=== PATIENT | male | born 1945 | race Caucasian/White ===

== ENCOUNTER → 2016-11-12 | Outpatient (CLI) | payer MEDICARE, MEDICAID ==
--- NOTE | 2016-11-14 11:58 | REP ---
RADIONUCLIDE OCTREOTIDE SCAN WITH SPECT IMAGIN11/14/2016. Clinical history: Neuroendocrine, gastrinoma, liver metastatic disease, surveillance. Comparison: 06/01/2015, 04/12/2014. Technique: Following the intravenous administration of 5.85 mCi Indium-111 Octreoscan, whole body images performed at 4 hours, 24 hours and 48 hours post injection. SPECT images and axial coronal and sagittal planes 24 hours post injection are also reviewed. Uptake in the spleen and kidneys noted as a normal finding. There is abnormal increased uptake and scattered lesions in the liver from the known metastatic disease but the left lobe of the liver today showing fewer lesions compared to May 2015. Pattern of uptake in the mid abdomen is again seen and similar in distribution and uptake intensity from the metastatic lesions previously noted. No other significant or new findings. The SPECT images confirm these above findings. Impression: 1. Pattern of metastatic lesions in the liver and mid abdominal mesenteric lesions noted and not significantly changed or increased except for two lesions in the left lobe of the liver that are much less apparent than on the study of May 2015. Signed by Jame Higuera MD 11/14/2016 05:50 P
== END ==
LOC: M RAD 07:40
PROVIDERS: ATTEND Internal Medicine Hematology & Oncology
DX: C25.4 Malignant neoplasm of endocrine pancreas (principal); C7A.8 Other malignant neuroendocrine tumors; C7B.8 Other secondary neuroendocrine tumors
CPT/HCPCS: 78803; 78804; A9572

== ENCOUNTER → 2016-11-13 | Outpatient (CLI) | payer MEDICARE, MEDICAID ==
--- NOTE | 2016-11-13 13:14 | REP ---
MRI ABDOMEN WITHOUT AND WITH CONTRAST: 11/13/2016. Clinical history: Neuroendocrine carcinoma, metastatic to the liver. Comparison: MRI 10/15/2011, CT abdomen and pelvis 08/29/2015. Technique: Coronal true FISP localizer with axial T1, T2, in and out of phase, fat suppressed T2 axial and coronal images, gradient echo images and axial projection after infusion of a bolus of 18 ml of ProHance, dynamic axial gradient echo sequences performed along with coronal fat suppressed gradient-echo sequence. Examination shows there was some motion artifact from respiration limiting the T2 sequences. Study shows lobulated hepatic contours and multiple hepatic lesions showing low T1 signal, increased T2 signal and some contrast enhancement. Most of these are the same or smaller particularly in the left lobe. Some of the delayed ProHance images demonstrate rim enhancement and low signal centrally as on previous studies. I do see a couple of areas in the posterior right hepatic lobe near the interpolar region of the right kidney in subcapsular location that may be slightly larger, all others are the same or smaller. There appear to be increased size and number of posterior right hepatic lobe lesions seen on the delayed images of the liver in the right hepatic lobe posteriorly. Most of the others are the same or slightly larger. The adrenal glands show no mass nor significant abnormality on the in and out of phase images. In the tail of the pancreas, there is hyperintense T2 focus with an adjacent similar hyperintense T2 focus in the peripancreatic fat near the tail of the pancreas and both of these are unchanged from previous studies and may reflect a cystic neoplasm. I do not see changes in the stomach which appears collapsed. The kidneys show no enhancing mass. Spleen is not enlarged and shows no focal lesion. There is no generalized ascites. Impression: 1. Multiple lesions in the liver, many the same but some new ones posteriorly in the right hepatic lobe near the subcapsular region adjacent to the right kidney and overall slight increase in metastatic disease in the liver. 2. Cystic area tail of the pancreas and adjacent peripancreatic soft tissues to the tail are again seen and unchanged from previous CT and MRI 2011. 3. No other significant or new finding. Signed by Jame Higuera MD 11/13/2016 05:07 P
== END ==
LOC: M RAD 08:40
PROVIDERS: ATTEND Physician Assistant
DX: C7A.8 Other malignant neuroendocrine tumors (principal); C7B.8 Other secondary neuroendocrine tumors
CPT/HCPCS: 74183; A9576

== ENCOUNTER → 2017-04-11 | Outpatient (CLI) | payer MEDICARE, MEDICAID ==
[2017-04-11 08:19] LABS: ANION GAP 6 MEQ/L (8-16); BLOOD UREA NITROGEN 16 MG/DL (7-18); CARBON DIOXIDE LEVEL 29 MEQ/L (21-32); CHLORIDE LEVEL 110 MEQ/L (98-107); CREATININE FOR GFR 0.73 MG/DL (0.70-1.30); GLOMERULAR FILTRATION RATE > 60.0 (>49); GLUCOSE, FASTING 96 MG/DL (80-110); SODIUM LEVEL 145 MEQ/L (136-145)
== END ==
LOC: M LAB 07:19
PROVIDERS: ATTEND Physician Assistant
DX: C7A.00 Malignant carcinoid tumor of unspecified site (principal); D3A.8 Other benign neuroendocrine tumors
CPT/HCPCS: 36415; 74183; 80048; A9576

== ENCOUNTER → 2017-04-11 | Outpatient (CLI) | payer MEDICARE, MEDICAID ==
--- NOTE | 2017-04-11 10:56 | REP ---
MRI ABDOMEN WITH AND WITHOUT CONTRAST: TECHNIQUE: Multiple sequences obtained in the axial and coronal planes prior to and following the intravenous administration of 18 mL of gadolinium. Comparison is made with prior study of 11/13/2016. There is a liver lesion in the left lobe superiorly which measures approximately 2.6 cm in maximum diameter. This has mildly increased in size since the prior MRI exam. There are approximately six focal liver lesion identified in the right lobe, one of which is adjacent to the caudate lobe. All of these lesions have mildly increased in size since the prior MRI exam. The lesions are hypointense on T1 and hyperintense on T2 and demonstrate mild enhancement. The lesion near the caudate lobe measures approximately 3.1 cm in maximum diameter. The largest inferior lesion is posteriorly located and measures about 3.9 cm in maximum diameter. The spleen is normal in size. Adrenals are unremarkable with no nodule. The pancreas is unchanged in appearance. Prominent common bile duct is stable. The kidneys demonstrate no hydronephrosis or suspicious lesion. There is no adenopathy or free fluid identified. IMPRESSION: Multiple liver nodules have mildly increased in size since the prior MRI of 11/13/2016 as discussed in detail above. Signed by Moises Alvarenga MD 04/11/2017 11:57 A
== END ==
LOC: M RAD 07:35
PROVIDERS: ATTEND Internal Medicine Hematology & Oncology
DX: C7A.00 Malignant carcinoid tumor of unspecified site (principal)

== ENCOUNTER → 2017-08-22 | Outpatient (CLI) | payer MEDICARE, MEDICAID ==
[~2017-08-22] MED LIST: PROHANCE 279.3MG/ML 15ML VIAL (A9576) As Ordered; PROHANCE 279.3MG/ML 5ML VIAL (A9576) As Ordered
[2017-08-22 10:54] LABS: ALBUMIN 3.3 GM/DL (3.2-5.2); ALBUMIN/GLOBULIN RATIO 0.97 (1.00-1.93); ALKALINE PHOSPHATASE 38 U/L (45-117); ALT/SGPT 23 U/L (12-78); ANION GAP 6 MEQ/L (8-16); AST/SGOT 15 U/L (7-37); BILIRUBIN,TOTAL 0.5 MG/DL (0.2-1.0); BLOOD UREA NITROGEN 12 MG/DL (7-18); CALCIUM LEVEL 8.3 MG/DL (8.8-10.2); CARBON DIOXIDE LEVEL 31 MEQ/L (21-32); CHLORIDE LEVEL 103 MEQ/L (98-107); CREATININE FOR GFR 0.81 MG/DL (0.70-1.30); GLOMERULAR FILTRATION RATE > 60.0 (>42); GLUCOSE, FASTING 242 MG/DL (83-110); POTASSIUM SERUM 4.1 MEQ/L (3.5-5.1); SODIUM LEVEL 140 MEQ/L (136-145); TOTAL PROTEIN 6.7 GM/DL (6.4-8.2)
== END ==
LOC: M RAD 10:00
DX: C78.80 Secondary malignant neoplasm of unspecified digestive organ (principal)
CPT/HCPCS: A9576

== ENCOUNTER → 2017-09-15 | Outpatient (CLI) | payer MEDICARE, MEDICAID | LOC: M RAD 08:41 | DX: C7A.00 Malignant carcinoid tumor of unspecified site (principal) | CPT/HCPCS: 78804 ==

== ENCOUNTER → 2017-12-19 | Outpatient (CLI) | payer MEDICARE, MEDICAID ==
[2017-12-19 10:44] LABS: BASO % 0.2 % (0.0-1.0); EOS % 0.3 % (0.0-3.0); HEMATOCRIT 41.8 % (42.0-52.0); HEMOGLOBIN 14.6 g/dl (13.5-17.5); IMMATURE GRANULOCYTE % 0.5 % (0-3.0); LYMPH # 1.7 10^3/uL (1.5-4.5); LYMPH % 19.2 % (24.0-44.0); MEAN CORPUSCULAR HEMOGLOBIN 30.4 pg (27.0-33.0); MEAN CORPUSCULAR HGB CONC 34.9 g/dl (32.0-36.5); MEAN CORPUSCULAR VOLUME 86.9 fl (80.0-96.0); MONO # 0.7 10^3/uL (0.0-0.8); NEUTROPHILS # 6.2 10^3/uL (1.8-7.7); NEUTROPHILS % 71.8 % (36.0-66.0); PLATELET COUNT, AUTOMATED 233 10^3/uL (150-450); RED BLOOD COUNT 4.81 10^6/uL (4.30-6.10); RED CELL DISTRIBUTION WIDTH 13.2 % (11.5-14.5); WHITE BLOOD COUNT 8.6 10^3/uL (4.0-10.0)
[2017-12-19 11:14] LABS: ALBUMIN 3.7 GM/DL (3.2-5.2); ALBUMIN/GLOBULIN RATIO 1.16 (1.00-1.93); ALKALINE PHOSPHATASE 41 U/L (45-117); ALT/SGPT 21 U/L (12-78); ANION GAP 4 MEQ/L (8-16); AST/SGOT 21 U/L (7-37); BILIRUBIN,TOTAL 0.5 MG/DL (0.2-1.0); BLOOD UREA NITROGEN 18 MG/DL (7-18); CALCIUM LEVEL 9.1 MG/DL (8.8-10.2); CARBON DIOXIDE LEVEL 30 MEQ/L (21-32); CHLORIDE LEVEL 106 MEQ/L (98-107); CREATININE FOR GFR 0.82 MG/DL (0.70-1.30); GLOMERULAR FILTRATION RATE > 60.0 (>42); GLUCOSE, FASTING 146 MG/DL (70-100); POTASSIUM SERUM 4.2 MEQ/L (3.5-5.1); SODIUM LEVEL 140 MEQ/L (136-145); TOTAL PROTEIN 6.9 GM/DL (6.4-8.2)
[2017-12-24 00:07] LABS: CHROMOGRANIN A 5 nmol/L (0-5)
== END ==
LOC: M LAB 10:06
DX: C7A.8 Other malignant neuroendocrine tumors (principal); C7B.8 Other secondary neuroendocrine tumors

== ENCOUNTER → 2017-12-19 | Outpatient (CLI) | payer MEDICARE, MEDICAID | LOC: M RAD 10:26 | DX: C7A.8 Other malignant neuroendocrine tumors (principal); C7B.8 Other secondary neuroendocrine tumors | CPT/HCPCS: A9576 ==

== ENCOUNTER → 2017-12-29 | Outpatient (CLI) | payer MEDICARE, MEDICAID | LOC: M RAD 08:25 | DX: C7A.8 Other malignant neuroendocrine tumors (principal); C7B.8 Other secondary neuroendocrine tumors | CPT/HCPCS: 78804 ==

== ENCOUNTER → 2018-03-23 | Outpatient (CLI) | payer MEDICARE, MEDICAID ==
[2018-03-23 11:35] LABS: ALBUMIN 3.5 GM/DL (3.2-5.2); ALBUMIN/GLOBULIN RATIO 1.13 (1.00-1.93); ALKALINE PHOSPHATASE 35 U/L (45-117); ALT/SGPT 22 U/L (12-78); ANION GAP 5 MEQ/L (8-16); AST/SGOT 14 U/L (7-37); BILIRUBIN,TOTAL 0.5 MG/DL (0.2-1.0); BLOOD UREA NITROGEN 13 MG/DL (7-18); CALCIUM LEVEL 8.7 MG/DL (8.8-10.2); CARBON DIOXIDE LEVEL 29 MEQ/L (21-32); CHLORIDE LEVEL 107 MEQ/L (98-107); CREATININE FOR GFR 0.86 MG/DL (0.70-1.30); GLOMERULAR FILTRATION RATE > 60.0 (>42); GLUCOSE, FASTING 172 MG/DL (70-100); POTASSIUM SERUM 5.1 MEQ/L (3.5-5.1); SODIUM LEVEL 141 MEQ/L (136-145); TOTAL PROTEIN 6.6 GM/DL (6.4-8.2)
== END ==
LOC: M LAB 10:18
DX: C7B.8 Other secondary neuroendocrine tumors (principal)
CPT/HCPCS: 80053

== ENCOUNTER → 2018-04-22 | Outpatient (CLI) | payer MEDICARE, MEDICAID | LOC: M RAD 12:22 | DX: D73.89 Other diseases of spleen (principal); K76.9 Liver disease, unspecified | CPT/HCPCS: A9576 ==

== ENCOUNTER → 2018-04-27 | Outpatient (CLI) | payer MEDICARE, MEDICAID | LOC: M RAD 08:21 | DX: C7B.8 Other secondary neuroendocrine tumors (principal) | CPT/HCPCS: 78804 ==

== ENCOUNTER 2018-07-24 06:45 | Day surgery (SDC) | payer MEDICARE, MEDICAID ==
[~2018-07-24] VITALS: Ht 175.3 cm; Wt 90.7 kg
[~2018-07-24 06:45] MED LIST changes: +ADV250INH INH; +AMLO10TA4 PO; +ASPI1TAB PO; +CRES5TAB PO; +DEXI60CA2 PO; +FINA5TAB2 PO; +FLOM0.4C39 PO; +FLON1SPR; +INDA125TA PO; +INSUH10VL SC; +LANREOTIDE SC; +LORA-243 PO; +METF10004 PO; +OMEG10002 PO; -PROHANCE 279.3MG/ML 15ML VIAL (A9576) As Ordered; -PROHANCE 279.3MG/ML 5ML VIAL (A9576) As Ordered; +TRES1INJ2 SC; +VENTAER INH; +VITA100T20 PO; +VITA500T PO
[2018-07-24] MEDS ORDERED: SIMETHICONE 40MG/0.6ML DROPS 30ML As Ordered ONE (07:02)
[2018-07-24] MEDS ORDERED: LIDOCAINE 2% INJ 100 MG/5 ML SDV (FOR ANES.) As Ordered ONE (07:12)
[2018-07-24] MEDS ORDERED: PROPOFOL 200 MG/20 ML VIAL As Ordered ONE ×2 (07:12→07:54)
[2018-07-24] MEDS ORDERED: NS 1,000 ML IV ONE (07:15)
[2018-07-24] MEDS ORDERED: fentaNYL 100 MCG/2 ML INJECTION (J3010) As Ordered ONE (07:40)
--- NOTE | 2018-07-24 07:49 | ROOR ---
Patient Name: Carl Medina Procedure Date: 07/24/2018 7:38 AM Date of : 1945 Age: 73 Room: [facility] Gender: Male Note Status: Finalized Procedure: Upper GI endoscopy Indications: Heartburn Providers: Melvin GAYLE MD Referring MD: JEISON WALSH MD Requesting Provider: Medicines: Monitored Anesthesia Care Complications: No immediate complications. Procedure: Pre-Anesthesia Assessment: - The heart rate, respiratory rate, oxygen saturations, blood pressure, adequacy of pulmonary ventilation, and response to care were monitored throughout the procedure. The Endoscope was introduced through the mouth, and advanced to the second part of duodenum. The upper GI endoscopy was accomplished without difficulty. The patient tolerated the procedure well. Findings: The esophagus was normal. The stomach was normal. The examined duodenum was normal. Impression: - Normal esophagus. - Normal stomach. - Normal examined duodenum. - No specimens collected. Recommendation: - Continue present medications. Melvin Gayle MD Melvin GAYLE MD 07/24/2018 7:49:24 AM This report has been signed electronically. Number of Addenda: 0 Note Initiated On: 07/24/2018 7:38 AM Estimated Blood Loss: Estimated blood loss: none.
--- NOTE | 2018-07-24 08:04 | ROOR ---
Patient Name: Carl Medina Procedure Date: 07/24/2018 7:38 AM Date of : 1945 Age: 73 Room: [facility] Gender: Male Note Status: Finalized Procedure: Colonoscopy Indications: High risk colon cancer surveillance: Personal history of colonic polyps, Last colonoscopy: April 2015 Providers: Melvin GAYLE MD Referring MD: JEISON WALSH MD Requesting Provider: Medicines: Monitored Anesthesia Care Complications: No immediate complications. Procedure: Pre-Anesthesia Assessment: - The heart rate, respiratory rate, oxygen saturations, blood pressure, adequacy of pulmonary ventilation, and response to care were monitored throughout the procedure. The Colonoscope was introduced through the anus and advanced to the cecum, identified by appendiceal orifice and ileocecal valve. The colonoscopy was performed without difficulty. The patient tolerated the procedure well. The quality of the bowel preparation was good. Findings: The perianal and digital rectal examinations were normal. Three sessile polyps were found in the sigmoid colon and splenic flexure. The polyps were 3 to 5 mm in size. These polyps were removed with a cold snare. Resection and retrieval were complete. Mild to moderate sigmoid diverticulosis and small internal hemorrhoids. The exam was otherwise without abnormality on direct and retroflexion views. Impression: - Three 3 to 5 mm polyps in the sigmoid colon and at the splenic flexure, removed with a cold snare. Resected and retrieved. - Mild to moderate sigmoid diverticulosis and small internal hemorrhoids. - The examination was otherwise normal on direct and retroflexion views. Recommendation: - Await pathology results. - Telephone endoscopist for pathology results in 2 weeks. - Repeat colonoscopy in 3 - 5 years for surveillance based on pathology results. Melvin Gayle MD Melvin GAYLE MD 07/24/2018 8:04:21 AM This report has been signed electronically. Number of Addenda: 0 Note Initiated On: 07/24/2018 7:38 AM Estimated Blood Loss: Estimated blood loss: none.
[2018-07-24 08:25] VITALS: BP 142/78
== END 2018-07-24 08:39 | disposition home or self-care (01) ==
LOC: M OPP 06:45
PROVIDERS: ATTEND Internal Medicine Gastroenterology
DX: Z12.11 Encounter for screening for malignant neoplasm of colon (principal); Z86.010 Personal history of colon polyps; D12.5 Benign neoplasm of sigmoid colon; D12.3 Benign neoplasm of transverse colon; R12 Heartburn; K64.8 Other hemorrhoids; K57.30 Diverticulosis of large intestine without perforation or abscess without bleeding; K21.9 Gastro-esophageal reflux disease without esophagitis; I10 Essential (primary) hypertension; E10.9 Type 1 diabetes mellitus without complications; N40.0 Benign prostatic hyperplasia without lower urinary tract symptoms; E16.4 Increased secretion of gastrin; Z79.82 Long term (current) use of aspirin; Z79.4 Long term (current) use of insulin; Z79.899 Other long term (current) drug therapy; Z88.8 Allergy status to other drugs, medicaments and biological substances; Z80.0 Family history of malignant neoplasm of digestive organs; Z80.8 Family history of malignant neoplasm of other organs or systems; Z85.07 Personal history of malignant neoplasm of pancreas
CPT/HCPCS: 43235; 45385; 88305; J3010

== ENCOUNTER → 2018-07-28 | Outpatient (REF) | payer MEDICARE, MEDICAID ==
[2018-07-28 14:10] LABS: APPEARANCE, URINE CLEAR (CLEAR); BACTERIA, URINE AUTO NEGATIVE (NEGATIVE); BILIRUBIN, URINE AUTO NEGATIVE (NEGATIVE); BLOOD, URINE BLOOD NEGATIVE (NEGATIVE); COLOR, URINE STRAW (YELLOW); GLUCOSE, URINE (UA) AUTO NEGATIVE (NEGATIVE); KETONE, URINE AUTO NEGATIVE (NEGATIVE); LEUKOCYTE ESTERASE, URINE AUTO NEGATIVE (NEGATIVE); NITRITE, URINE AUTO NEGATIVE (NEGATIVE); PROTEIN, URINE AUTO NEGATIVE (NEGATIVE); RBC, URINE AUTO 0 /HPF (0-3); SPECIFIC GRAVITY URINE AUTO 1.003 (1.002-1.035); SQUAMOUS EPITHELIAL CELL UR AU 0 /HPF (0-6); UROBILINOGEN, URINE AUTO 0.2 mg/dL (0.0-2.0); WBC, URINE AUTO 0 /HPF (0-3)
== END ==
LOC: M LAB REF 13:04
PROVIDERS: ATTEND Nurse Practitioner Women's Health
DX: N40.0 Benign prostatic hyperplasia without lower urinary tract symptoms (principal)
CPT/HCPCS: 51798; 81001; 87086; G0463

== ENCOUNTER → 2018-10-22 | Outpatient (CLI) | payer MEDICARE, MEDICAID ==
[~2018-10-22] MED LIST changes: -AMLO10TA4 PO; +AMLO10TA5 PO; +PROHANCE 279.3MG/ML 15ML VIAL (A9576) As Ordered ONE; +PROHANCE 279.3MG/ML 5ML VIAL (A9576) As Ordered ONE
[2018-10-22 11:03] LABS: BASO % 0.3 % (0.0-1.0); EOS # 0.1 10^3/uL (0.0-0.50); EOS % 0.8 % (0.0-3.0); HEMATOCRIT 43.2 % (42.0-52.0); HEMOGLOBIN 14.9 g/dl (13.5-17.5); LYMPH # 1.8 10^3/uL (1.5-4.5); MEAN CORPUSCULAR HEMOGLOBIN 30.3 pg (27.0-33.0); MEAN CORPUSCULAR HGB CONC 34.5 g/dl (32.0-36.5); MEAN CORPUSCULAR VOLUME 87.8 fl (80.0-96.0); MONO # 0.7 10^3/uL (0.0-0.8); MONO % 7.9 % (0.0-5.0); NEUTROPHILS % 69.7 % (36.0-66.0); PLATELET COUNT, AUTOMATED 270 10^3/uL (150-450); RED BLOOD COUNT 4.92 10^6/uL (4.30-6.10); WHITE BLOOD COUNT 8.7 10^3/uL (4.0-10.0)
[2018-10-22 11:32] LABS: ALBUMIN 3.9 GM/DL (3.2-5.2); ALT/SGPT 15 U/L (12-78); BILIRUBIN,TOTAL 0.6 MG/DL (0.2-1.0); BLOOD UREA NITROGEN 12 MG/DL (7-18); CARBON DIOXIDE LEVEL 30 MEQ/L (21-32); CHLORIDE LEVEL 104 MEQ/L (98-107); CREATININE FOR GFR 0.82 MG/DL (0.70-1.30); GLOMERULAR FILTRATION RATE > 60.0 (>42); GLUCOSE, FASTING 68 MG/DL (70-100); POTASSIUM SERUM 4.2 MEQ/L (3.5-5.1); SODIUM LEVEL 141 MEQ/L (136-145)
--- NOTE | 2018-10-22 14:22 | REP ---
MRI ABDOMEN WITH AND WITHOUT CONTRAST: COMPARISON: 04/22/2018. Multiple sequences obtained in the axial and coronal planes prior to and following the intravenous administration of 18 mL ProHance. Multiple liver lesions are again seen. These are hypointense on T1 and hyperintense on T2 with a heterogeneous signal pattern on T2. Multiple enhancing nodules are seen in the arterial phase of post gadolinium enhancement. Multiple small nodules superiorly in the right and left lobes appear essentially unchanged. A heterogeneously enhancing nodule in the region of the caudate lobe has increased in size measuring about 2.4 cm in diameter. A mildly enhancing nodule in the posterior right lobe inferiorly is mildly increased in size now measuring 5 cm in maximum diameter. Several other nodules in this region of the right lobe only minimally enhance with contrast, but have increased in size. There is one nodule medially in the inferior right lobe which is stable. This measures about 1.7 cm. Another nodule in the left dome is unchanged, near the fissure for ligamentum teres. A heterogeneously enhancing nodule in the left lobe superiorly and posteriorly measures 2.6 cm and has mildly increased in size since the prior study. Three dominant nodules are seen in the spleen, the largest measures approximately 4.5 cm in diameter. These nodules appear slightly larger than on the prior study. Adrenals are unremarkable and unchanged. Pancreas demonstrates no mass. Mildly prominent common bile duct is unchanged. Kidneys demonstrate no mass. There is no hydronephrosis. No periaortic adenopathy is seen. There is no ascites. IMPRESSION: Multiple liver nodules identified. These demonstrate variable enhancement with some enhancing in the arterial phase and others not enhancing. Most have mildly increased in size since the prior study of 04/22/2018 although many are also stable as discussed in detail above. Three dominant nodules are seen in the spleen which have minimally increased in size. Please note that the two most anterior nodules in the spleen previously were thought to represent one larger nodule, but today they appear to represent two separate nodules. Electronically Signed by Moises Alvarenga MD 10/22/2018 05:15 P
[2018-10-27 00:07] LABS: CHROMOGRANIN A 8 nmol/L (0-5); GASTRIN 544 pg/mL (0-115)
== END ==
LOC: M LAB 10:20
PROVIDERS: ATTEND Internal Medicine Hematology & Oncology
DX: C7A.8 Other malignant neuroendocrine tumors (principal); K76.89 Other specified diseases of liver; D73.89 Other diseases of spleen
CPT/HCPCS: 74183; 80053; 82941; 85025; 86316; A9576

== ENCOUNTER → 2018-10-26 | Outpatient (CLI) | payer MEDICARE, MEDICAID ==
[~2018-10-26] MED LIST changes: -PROHANCE 279.3MG/ML 15ML VIAL (A9576) As Ordered ONE; -PROHANCE 279.3MG/ML 5ML VIAL (A9576) As Ordered ONE
--- NOTE | 2018-10-28 21:26 | REP ---
OCTREOSCAN FOR NEUROENDOCRINE TUMOR WITH SPECT IMAGIN10/26/2018. Clinical history: Gastrinoma for restaging. Comparison: 04/27/2018, 12/29/2017 Octreoscan, MRI 10/22/2018. Technique: The patient received 6.5 mCi Indium-111 Octreoscan with 4 hour, 24 hour and 48 hour whole body delayed images. Similarly, scanning over the chest and abdomen in multiple projections at those same time also performed. SPECT imaging with rotational display of the volume reconstructions and source images reviewed at the 48 hour scan. Findings: Once again, there are multiple foci of increased uptake throughout the liver in this patient with known metastatic disease. Uptake in the pancreatic bed just to the left of midline also noted and all of this unchanged in extent. Intensity of uptake in the liver appears slightly decreased. The background activity and uptake in the kidneys and other organs are appropriate and stable. Impression: 1. Pattern of increased uptake in the liver and periaortic/peripancreatic region to the left of midline, stable compared to multiple prior studies on standard and SPECT images. Intensity of uptake of liver lesions is slightly decreased for some of them. No new findings. Electronically Signed by Jame Higuera MD 10/28/2018 10:11 P
== END ==
LOC: M RAD 08:15
PROVIDERS: ATTEND Internal Medicine Hematology & Oncology
DX: C7A.8 Other malignant neuroendocrine tumors (principal); D37.9 Neoplasm of uncertain behavior of digestive organ, unspecified
CPT/HCPCS: 78803; 78804; A9572

== ENCOUNTER → 2019-04-26 | Outpatient (CLI) | payer MEDICARE, MEDICAID ==
[~2019-04-26] MED LIST changes: -ASPI1TAB PO; +ASPI81TA26 PO; -VITA100T20 PO; +VITA100T51 PO
--- NOTE | 2019-04-28 11:51 | REP ---
WHOLE BODY OCTREOTIDE SCAN TUMOR IMAGING WITH SPECT IMAGES: Following the intravenous administration of 6.6 millicuries technetium 111 octreotide, multiple images are obtained of the whole body in multiple projections, at 4 hours, 24 hours, and 48 hours postinjection. SPECT images are also performed in the axial, coronal, and sagittal planes. Comparison is made with prior study of 10/26/2018. Once again, there are multiple foci and increased uptake in the liver. These foci appears essentially unchanged in size and intensity given differences in technique. Central mesenteric uptake also appears stable. No new foci of abnormal uptake are seen. There is normal renal and bladder activity seen. IMPRESSION: Essentially stable exam compared to multiple prior studies, most recently 10/26/2018. Electronically Signed by Moises Alvarenga MD 04/29/2019 09:22 A
== END ==
LOC: M RAD 08:20
PROVIDERS: ATTEND Physician Assistant
DX: C7A.8 Other malignant neuroendocrine tumors (principal); C7B.8 Other secondary neuroendocrine tumors
CPT/HCPCS: 78803; 78804; 80053; 85025; 86316; A9572

== ENCOUNTER → 2019-04-26 | Outpatient (CLI) | payer MEDICARE, MEDICAID ==
[2019-04-26 09:37] LABS: BASO % 0.6 % (0.0-1.0); EOS # 0.1 10^3/uL (0.0-0.5); EOS % 1.8 % (0.0-3.0); HEMATOCRIT 40.7 % (42.0-52.0); HEMOGLOBIN 13.7 g/dl (13.5-17.5); LYMPH # 1.5 10^3/uL (1.5-5.0); LYMPH % 21.6 % (24.0-44.0); MEAN CORPUSCULAR HEMOGLOBIN 30.2 pg (27.0-33.0); MEAN CORPUSCULAR HGB CONC 33.7 g/dl (32.0-36.5); MEAN CORPUSCULAR VOLUME 89.8 fl (80.0-96.0); MONO # 0.7 10^3/uL (0.0-0.8); MONO % 10.3 % (0.0-5.0); NEUTROPHILS # 4.4 10^3/uL (1.5-8.5); NEUTROPHILS % 65.1 % (36.0-66.0); PLATELET COUNT, AUTOMATED 253 10^3/uL (150-450); RED BLOOD COUNT 4.53 10^6/uL (4.30-6.10); WHITE BLOOD COUNT 6.8 10^3/uL (4.0-10.0)
[2019-04-26 10:10] LABS: ALBUMIN 3.8 GM/DL (3.2-5.2); ALT/SGPT 19 U/L (12-78); BILIRUBIN,TOTAL 0.5 MG/DL (0.2-1.0); BLOOD UREA NITROGEN 25 MG/DL (7-18); CALCIUM LEVEL 9.4 MG/DL (8.8-10.2); CARBON DIOXIDE LEVEL 28 MEQ/L (21-32); CHLORIDE LEVEL 103 MEQ/L (98-107); CREATININE FOR GFR 1.07 MG/DL (0.70-1.30); GLOMERULAR FILTRATION RATE > 60.0 (>42); GLUCOSE, FASTING 116 MG/DL (70-100); POTASSIUM SERUM 4.1 MEQ/L (3.5-5.1); SODIUM LEVEL 143 MEQ/L (136-145); TOTAL PROTEIN 6.7 GM/DL (6.4-8.2)
== END ==
LOC: M LAB 08:26
PROVIDERS: ATTEND Internal Medicine Hematology & Oncology
DX: C7B.8 Other secondary neuroendocrine tumors (principal)

== ENCOUNTER → 2019-04-27 | Outpatient (CLI) | payer MEDICARE, MEDICAID ==
[~2019-04-27] MED LIST changes: +PROHANCE 279.3MG/ML 15ML VIAL (A9576) As Ordered ONE; +PROHANCE 279.3MG/ML 5ML VIAL (A9576) As Ordered ONE
--- NOTE | 2019-04-27 10:31 | REP ---
MRI ABDOMEN WITH AND WITHOUT CONTRAST: TECHNIQUE: Multiple sequences obtained in the axial and coronal planes prior to and following the intravenous administration of 18 mL ProHance. Comparison made with prior study of 10/22/2018. Multiple liver lesions are again seen, demonstrating hypointensity on T1-weighted images and mild heterogeneous hyperintensity on T2. Multiple small enhancing nodules on the arterial phase postcontrast images are seen in the right and left lobes, measuring up to about 11 mm in maximum diameter. Most of these appear stable while a few in the superior aspect of the anterior segment of the right lobe appear to have slightly decreased in size. There is a lesion in the medial segment of the left lobe, which has increased in size but demonstrates an increased cystic component, approximately 3.6 cm in diameter. Another lesion at about the same level in the posterior aspect of the lateral segment of the left lobe has also increased in size with increased cystic component, maximum diameter is approximately 4 cm. At that same level in the more anterior aspect of the lateral segment of the left lobe, an enhancing lesion has slightly increased in size measuring 1 cm in diameter. An area of ill-defined enhancement at the more inferior aspect of the lateral segment of the left lobe appears to have mildly increased in size. There is increased size of a nodule laterally in the posterior segment of the right lobe more inferiorly, approximately 1 cm in diameter. There are adjacent larger confluent enhancing nodules, which have increased in size since the prior exam. Common bile duct is again noted to be dilated with a maximum diameter of 16 mm. Prior maximum diameter was 15 mm. There are at least three small filling defects in the distal end of the common bile duct now seen, compatible with small stones and choledocholithiasis. There is mild intrahepatic biliary dilatation. Spleen demonstrates three nodules. There is a larger central nodule, which has remained essentially stable. An adjacent smaller anterior nodule and posterior nodule have slightly increased in size, the anterior nodule about 2.5 cm in maximum diameter and the posterior nodule approximately 3.9 cm. There is stable diffuse mild thickening of the left adrenal gland. The right adrenal gland appears normal. Pancreas is unchanged in appearance. No mass is seen in either kidney, and there is no hydronephrosis. Soft tissue nodules are again seen in the peripancreatic region. An oval nodule along the anterior aspect of the inferior vena cava has mildly increased in size measuring 3.8 x 2.1 cm, previously, 3.2 x 1.7 cm. No free fluid is seen in the abdomen. IMPRESSION: Multiple liver nodules again seen. A few of the smaller nodules enhancing the arterial phase of the study in the anterior segment of the right lobe superiorly have mildly decreased in size. Other similar-appearing nodules in the right and left lobes have either remained stable or have mildly increased in size. Two larger nodules in the left lobe superiorly, one in the medial segment and one in the lateral segment, have increased in size with increased cystic component. The lesion in the medial segment of the left lobe especially demonstrates cystic change with some minimal rim enhancement. The other lesion in the lateral segment of the left lobe posteriorly demonstrates a greater degree of enhancement. Other previously identified lesions in the region of the caudate lobe and inferior right lobe have increased in size. Three splenic lesions are again seen, one larger lesion centrally is stable while the two other smaller lesions have slightly increased in size. Peripancreatic soft tissue nodules for the most part are stable, except for a mild increase in size of an oval nodule along the anterior aspect of the inferior vena cava. Biliary dilatation is stable, but there are at least three new subcentimeter filling defects in the distal common bile duct compatible with choledocholithiasis. Electronically Signed by Moises Alvarenga MD 04/28/2019 10:49 A
== END ==
LOC: M RAD 06:36
PROVIDERS: ATTEND Physician Assistant
DX: C7A.8 Other malignant neuroendocrine tumors (principal)
CPT/HCPCS: 74183; A9576

== ENCOUNTER → 2019-11-08 | Outpatient (CLI) | payer MEDICARE, MEDICAID ==
[~2019-11-08] MED LIST changes: -PROHANCE 279.3MG/ML 15ML VIAL (A9576) As Ordered ONE; -PROHANCE 279.3MG/ML 5ML VIAL (A9576) As Ordered ONE
[2019-11-08 08:06] LABS: BLOOD UREA NITROGEN 16 MG/DL (7-18); CARBON DIOXIDE LEVEL 32 MEQ/L (21-32); CHLORIDE LEVEL 106 MEQ/L (98-107); GLOMERULAR FILTRATION RATE > 60.0 (>42); GLUCOSE, FASTING 189 MG/DL (70-100); POTASSIUM SERUM 4.3 MEQ/L (3.5-5.1); SODIUM LEVEL 141 MEQ/L (136-145)
--- NOTE | 2019-11-10 10:47 | REP ---
OCTREOSCAN NUCLEAR SCINTIGRAPHY WITH SPECT IMAGING: HISTORY: Metastatic neural endocrine malignancy. The most recent comparison Octreoscan is from April 27, 2019. Comparison is made with MRI study of the abdomen and liver from April 27, 2019 as well. TECHNIQUE: 6.6 mCi of Indium-111 Octreoscan is administered. Whole body images were obtained 4 hours, 24 hours, and 48 hours post injection anterior and posterior projection. In addition, planar images are obtained for hours, 24 hours, and 48 hours. A SPECT acquisition is acquired and tomographic images are rendered. SCINTIGRAPHIC FINDINGS: There are multifocal metastatic areas of increased uptake throughout the left and right lobes of the liver. Central upper abdominal shasha uptake is also present. These areas of increased uptake appear unchanged in size and number when comparison is made with the prior study from April 28, 2019. No new focus of increased uptake is seen within the chest, abdomen, or pelvis when compared with the most recent prior study of April 28, 2019. Imaging findings are essentially stable when compared with a more remote prior study from December 31, 2017 as well. SPECT imaging is unchanged as well. IMPRESSION: There is metastatic activity again seen in multiple foci in the liver and in multiple shasha foci in the upper abdomen unchanged from comparison Octreoscan study. Electronically Signed by Nakul Gomez MD 11/10/2019 11:29 A
== END ==
LOC: M RAD 07:15
PROVIDERS: ATTEND Internal Medicine Hematology & Oncology
DX: C80.1 Malignant (primary) neoplasm, unspecified (principal)
CPT/HCPCS: 36415; 78803; 78804; 80048; A9572

== ENCOUNTER → 2019-11-16 | Outpatient (CLI) | payer MEDICARE, MEDICAID ==
[~2019-11-16] MED LIST changes: +PROHANCE 279.3MG/ML 15ML VIAL (A9576) As Ordered ONE; +PROHANCE 279.3MG/ML 5ML VIAL (A9576) As Ordered ONE
--- NOTE | 2019-11-16 16:00 | REP ---
MRI ABDOMEN WITH AND WITHOUT CONTRAST: Multiple sequences obtained in the axial and coronal planes prior to and following the intravenous administration of 18 mL ProHance. Comparison made with prior study of 04/27/2019. On both pre and postcontrast sequences there is an increased number of nodules seen throughout both lobes of the liver. Multiple innumerable nodules are present throughout both lobes as seen on arterial phase post contrast images. Multiple new small nodules are seen. Previously noted nodules in both lobes have increased in size. Largest in the left lobe is posteriorly located and measures about 5.1 cm in diameter. The largest in the right lobe are inferiorly located and are coalescing together inferiorly. Previously noted splenic nodules have all increased in size. The previously noted mesenteric nodules have also increased in size. The largest is located anterior to the inferior vena cava at the level of the mid to upper right kidney. It measures 4.5 x 2.3 cm. There are a few other smaller adjacent mesenteric lymph nodes which have mildly increased in size. One of the left mesenteric lymph nodes adjacent to the superior mesenteric artery has remained stable. Adrenal glands and pancreas demonstrate no mass. The kidneys demonstrate no mass or hydronephrosis. There is dilatation of the common bile duct up to 1.9 cm. There are again three stones in the distal common bile duct which measure 1.3 cm, 1.4 cm and 8.0 mm in maximum diameter. The pancreas duct is not dilated. IMPRESSION: Multiple innumerable nodules now seen throughout the liver, with multiple new small nodules now seen throughout the right and left lobes. Previously noted nodules in the right and left lobes have increased in size. The previously noted splenic nodules have increased in size. Mesenteric nodules have also increased in size, except for one stable left mesenteric nodule near the superior mesenteric artery. Once again there is evidence of choledocholithiasis with three stones seen in the common bile duct as discussed above. Common bile duct is dilated up to 1.9 cm. Electronically Signed by Moises Alvarenga MD 11/16/2019 06:22 P
--- NOTE | 2019-11-16 16:25 | REP ---
MRI PELVIC WITH AND WITHOUT CONTRAST: TECHNIQUE: Multiple sequences obtained in the axial, coronal and sagittal planes prior to and following the intravenous administration of 18 mL ProHance. No pelvic mass is seen. There is no free fluid. There is no adenopathy. The urinary bladder is not well distended. No bone lesion is seen of the pelvic osseous structures. No abnormal enhancement is seen. IMPRESSION: Negative MRI pelvis with and without contrast. Electronically Signed by Moisse Alvarenga MD 11/16/2019 06:22 P
== END ==
LOC: M RAD 12:19
PROVIDERS: ATTEND Internal Medicine Hematology & Oncology
DX: C80.1 Malignant (primary) neoplasm, unspecified (principal)
CPT/HCPCS: 72197; 74183; A9576

== ENCOUNTER → 2020-02-01 | Outpatient (CLI) | payer MEDICARE, MEDICAID ==
[~2020-02-01] MED LIST changes: -PROHANCE 279.3MG/ML 15ML VIAL (A9576) As Ordered ONE; -PROHANCE 279.3MG/ML 5ML VIAL (A9576) As Ordered ONE; +VITA-243 PO; -VITA500T PO
[2020-02-01 16:17] LABS: BASO % 0.3 % (0.0-1.0); EOS # 0.1 10^3/uL (0.0-0.5); EOS % 0.8 % (0.0-3.0); HEMOGLOBIN 12.1 g/dl (13.5-17.5); LYMPH # 1.9 10^3/uL (1.5-5.0); LYMPH % 24.3 % (24.0-44.0); MEAN CORPUSCULAR HEMOGLOBIN 29.2 pg (27.0-33.0); MEAN CORPUSCULAR HGB CONC 32.7 g/dl (32.0-36.5); MEAN CORPUSCULAR VOLUME 89.2 fl (80.0-96.0); MONO # 0.5 10^3/uL (0.0-0.8); MONO % 6.8 % (0.0-5.0); NEUTROPHILS # 5.2 10^3/uL (1.5-8.5); NEUTROPHILS % 67.4 % (36.0-66.0); PLATELET COUNT, AUTOMATED 344 10^3/uL (150-450); RED BLOOD COUNT 4.15 10^6/uL (4.30-6.10); WHITE BLOOD COUNT 7.6 10^3/uL (4.0-10.0)
[2020-02-01 16:49] LABS: ALBUMIN 3.2 GM/DL (3.2-5.2); ALT/SGPT 22 U/L (12-78); BILIRUBIN,TOTAL 0.2 MG/DL (0.2-1.0); BLOOD UREA NITROGEN 29 MG/DL (7-18); CALCIUM LEVEL 8.9 MG/DL (8.8-10.2); CARBON DIOXIDE LEVEL 28 MEQ/L (21-32); CHLORIDE LEVEL 106 MEQ/L (98-107); CREATININE FOR GFR 1.21 MG/DL (0.70-1.30); GLOMERULAR FILTRATION RATE > 60.0 (>42); GLUCOSE, FASTING 151 MG/DL (70-100); POTASSIUM SERUM 4.7 MEQ/L (3.5-5.1); SODIUM LEVEL 139 MEQ/L (136-145)
== END ==
LOC: M LAB 15:36
PROVIDERS: ATTEND Physician Assistant
DX: C7B.8 Other secondary neuroendocrine tumors (principal)

== ENCOUNTER → 2020-06-05 | Outpatient (REF) | payer MEDICARE, MEDICAID ==
[~2020-06-05] MED LIST changes: -AMLO10TA5 PO; +AMLO1TAB25 PO
== END ==
LOC: M SMT 13:45
PROVIDERS: ATTEND Urology
DX: N32.89 Other specified disorders of bladder (principal)

== ENCOUNTER → 2020-10-26 | Outpatient (CLI) | payer MEDICARE, MEDICAID ==
[~2020-10-26] MED LIST changes: +PROHANCE 279.3MG/ML 15ML VIAL As Ordered ONE; +PROHANCE 279.3MG/ML 5ML VIAL As Ordered ONE
--- NOTE | 2020-10-26 11:39 | REP ---
INDICATION: NEURO another nodule anterior to the superior mesenteric artery has increased in size. The nodule just inferior to that level, just to the left of midline has not changed. Another adjacent nodule has not changed. CA OF LIVER. COMPARISON: 11/16/2019. TECHNIQUE: Multiple sequences obtained in the axial coronal planes prior to and following the intravenous administration of 15 mL ProHance. FINDINGS: Multiple nodules are again seen throughout both lobes of the liver, with new nodules present as well as increased size of the previously identified nodules. There is diffuse replacement of the spleen by multiple nodules which have increased in size. No adrenal mass is seen. No pancreatic mass is seen. No renal mass is seen. Previously noted mass anterior to the inferior vena cava has increased in size, 4.9 x 3.9 cm, previously 4.5 x 2.3 cm. Another mass anterior to the superior mesenteric artery has mildly increased in size. There are 2 nodules to the left of midline more inferiorly which are stable. No ascites is seen. Previously noted stones in the common bile duct are no longer visualized. The maximum diameter of the common bile duct is 1.5 cm, mildly decreased in diameter compared to the prior study. IMPRESSION: Multiple nodules throughout the liver and spleen have increased in size and there are several new liver nodules present. A mass anterior to the inferior vena cava and another anterior to the superior mesenteric artery have increased in size. Two other nodules more inferiorly on the left are unchanged. <Electronically signed by Moises Alvarenga > 10/26/20 [id number]
== END ==
LOC: M RAD 08:36
PROVIDERS: ATTEND Internal Medicine Hematology & Oncology
DX: C7A.8 Other malignant neuroendocrine tumors (principal); C7B.8 Other secondary neuroendocrine tumors
CPT/HCPCS: 74183; A9576

== ENCOUNTER → 2021-04-19 | Outpatient (CLI) | payer MEDICARE, MEDICAID ==
[~2021-04-19] MED LIST changes: -PROHANCE 279.3MG/ML 5ML VIAL As Ordered ONE
--- NOTE | 2021-04-19 15:47 | REP ---
INDICATION: RESTAGE NEURO ENDOCRINE CA. COMPARISON: 10/26/2020, 07/07/2020, as well as other prior exams. TECHNIQUE: Multiple sequences obtained in the axial coronal planes prior to and following the intravenous administration of 15 mL ProHance. FINDINGS: The liver is enlarged measuring approximately 19.4 cm in length. Multiple heterogeneous, enhancing nodules are again seen throughout the liver. Since the prior study of 07/07/2020, the dominant nodules have increased in diameter less than 1 cm. Multiple other smaller nodules also appear to have increased in diameter less than 1 cm. There do appear to be few new small nodules as well. The largest nodule is in the left lobe, measuring about 7.4 x 6.6 cm. There is an adjacent nodule just lateral to that 4.6 cm. More inferiorly in the right lobe a peripheral nodule measures 4.4 cm in maximum diameter. Large confluent nodules are again seen more inferiorly in the right lobe, the largest measures 5.1 x 5.9 cm. Multiple nodules are seen throughout the spleen which have not significantly changed. The adrenals, pancreas and kidneys again appear unremarkable. A nodule anterior to the inferior vena cava may be a few mm larger than on the 07/07/2020 exam. Other left para-aortic nodules appear unchanged. No free fluid is seen. The common bile duct appears unchanged. IMPRESSION: Multiple diffuse liver nodules, these demonstrate minimal, gradual, subcentimeter increase in size since the 07/07/2020 exam. Multiple nodules throughout the spleen have not significantly changed. A nodule anterior to the inferior vena cava may be a few mm larger than on the 07/07/2020 exam. Other soft tissue nodules adjacent to the abdominal aorta and superior mesenteric artery are essentially stable. <Electronically signed by Moises Alvarenga > 04/19/21 [id number]
== END ==
LOC: M RAD 12:33
PROVIDERS: ATTEND Internal Medicine Hematology & Oncology
DX: C7B.02 Secondary carcinoid tumors of liver (principal)
CPT/HCPCS: 74183; A9576

== ENCOUNTER → 2021-07-24 | Outpatient (CLI) | payer MEDICARE, MEDICAID ==
--- NOTE | 2021-07-24 14:10 | REP ---
INDICATION: OTHER MALIGNANT NEUROENDOCRINE TUMORS. COMPARISON: 04/19/2021. TECHNIQUE: Multiple sequences obtained in the axial coronal planes prior to and following the intravenous administration of 14 mL ProHance. FINDINGS: The liver is again noted to be enlarged with a length of approximately 19.4 cm. Multiple heterogeneous enhancing nodules are again seen throughout the liver. [employer] nodules are measured throughout the liver and there is no significant change compared to the prior study. No significant new nodules are seen in the liver. There are multiple nodules also seen in the spleen. These also are stable when compared to the prior study. The adrenals, pancreas and kidneys are unremarkable and unchanged. Multiple periaortic nodules are unchanged. There is no free fluid. Prominent common bile duct is unchanged. IMPRESSION: Compared to the prior exam there is no significant change in the multiple hepatic, splenic and periaortic nodules. <Electronically signed by Moises Alvarenga > 07/24/21 [id number]
== END ==
LOC: M RAD 11:34
PROVIDERS: ATTEND Internal Medicine Hematology & Oncology
DX: C7A.8 Other malignant neuroendocrine tumors (principal)
CPT/HCPCS: 74183; A9576

== ENCOUNTER → 2021-10-25 | Outpatient (CLI) | payer MEDICARE, MEDICAID ==
[~2021-10-25] MED LIST changes: -PROHANCE 279.3MG/ML 15ML VIAL As Ordered ONE
[2021-10-25 10:43] LABS: CREATININE FOR GFR 0.97 MG/DL (0.70-1.30); GLOMERULAR FILTRATION RATE > 60.0 (>42)
== END ==
LOC: M LAB 09:13
PROVIDERS: ATTEND Internal Medicine Hematology & Oncology
DX: C7B.8 Other secondary neuroendocrine tumors (principal)

== ENCOUNTER → 2021-10-25 | Outpatient (CLI) | payer MEDICARE, MEDICAID ==
[~2021-10-25] MED LIST changes: +PROHANCE 279.3MG/ML 15ML VIAL As Ordered ONE
== END ==
LOC: M RAD 08:18
PROVIDERS: ATTEND Internal Medicine Hematology & Oncology
DX: C7B.8 Other secondary neuroendocrine tumors (principal); C7A.8 Other malignant neuroendocrine tumors
CPT/HCPCS: 36415; 74183; 82565; A9576

== ENCOUNTER → 2021-11-07 | Outpatient (CLI) | payer MEDICARE, MEDICAID ==
[~2021-11-07] MED LIST changes: +ALFU10TA3 PO; +LOSA100T45 PO; +MYRB25TA PO; -PROHANCE 279.3MG/ML 15ML VIAL As Ordered ONE
== END ==
LOC: M LABSMTC 11:21
PROVIDERS: ATTEND Anesthesiology
DX: Z01.818 Encounter for other preprocedural examination (principal); Z11.52 Encounter for screening for COVID-19

== ENCOUNTER 2021-11-09 10:14 | Day surgery (SDC) | payer MEDICARE, MEDICAID ==
[~2021-11-09] VITALS: Ht 175.3 cm; Wt 75.3 kg
[~2021-11-09 10:14] MED LIST changes: +LIDOCAINE 2% 100MG/5ML SDV (FOR ANES.) As Ordered ONE; +NS 1,000 ML IV ONE; +propofoL 200 MG/20 ML VIAL As Ordered ONE
[2021-11-09] MEDS ORDERED: HumaLOG INSULIN (NovoLOG) PER UNIT SC ONE (11:55)
[2021-11-09 14:20] VITALS: BP 120/62
== END 2021-11-09 14:22 | disposition home or self-care (01) ==
LOC: M OPP 10:14
PROVIDERS: ATTEND Internal Medicine Gastroenterology
DX: Z12.11 Encounter for screening for malignant neoplasm of colon (principal); Z86.010 Personal history of colon polyps; Z80.0 Family history of malignant neoplasm of digestive organs; D12.5 Benign neoplasm of sigmoid colon; K57.30 Diverticulosis of large intestine without perforation or abscess without bleeding; Z79.4 Long term (current) use of insulin; Z79.82 Long term (current) use of aspirin; Z79.899 Other long term (current) drug therapy
CPT/HCPCS: 45385; 88305; J1815

== ENCOUNTER → 2022-04-25 | Outpatient (CLI) | payer MEDICARE, MEDICAID ==
[~2022-04-25] MED LIST changes: +INDA1.253 PO; -INDA125TA PO; -LIDOCAINE 2% 100MG/5ML SDV (FOR ANES.) As Ordered ONE; -NS 1,000 ML IV ONE; +PROHANCE 279.3MG/ML 15ML VIAL As Ordered ONE; -propofoL 200 MG/20 ML VIAL As Ordered ONE
== END ==
LOC: M RAD 10:39
PROVIDERS: ATTEND Internal Medicine Hematology & Oncology
DX: C7B.8 Other secondary neuroendocrine tumors (principal)
CPT/HCPCS: 74183; A9576

== ENCOUNTER 2022-11-29 08:26 | Day surgery (SDC) | payer MEDICARE, MEDICAID ==
[~2022-11-29] VITALS: Ht 175.3 cm; Wt 63.0 kg
[~2022-11-29 08:26] MED LIST changes: +AFIN5TAB PO; +AMLO10TA PO; +B-12100010 PO; +BISO5TAB14 PO; +DIFL200T PO; +DOCU100C16 PO; +EQL50TAB2 PO; +LANR60SY SC; +MAGN400T35 PO; +MYRB50TA PO; -PROHANCE 279.3MG/ML 15ML VIAL As Ordered ONE; +ROSU10TA6 PO; +TRAM50TA2 PO; +[UNRECOGNIZED DRUG - OTHER]
[2022-11-29] MEDS ORDERED: LR 1,000 ML IV SCH ×2 (08:40→12:10)
[2022-11-29] MEDS ORDERED: ceFAZolin SOD 2 GM in IV 1 EA IV ONE (09:20)
[2022-11-29] MEDS ORDERED: INSULIN LISPRO (NovoLOG) PER UNIT SC PRN (09:50)
[2022-11-29] MEDS ORDERED: LIDOCAINE 2% 100MG/5ML SDV (FOR ANES.) As Ordered ONE (10:12)
[2022-11-29] MEDS ORDERED: propofoL 200 MG/20 ML VIAL As Ordered ONE (10:12)
[2022-11-29] MEDS ORDERED: MIDAZOLAM INJ 2MG/2ML VIAL As Ordered ONE (10:35)
[2022-11-29] MEDS ORDERED: fentaNYL 100 MCG/2 ML INJECTION As Ordered ONE (10:36)
[2022-11-29] MEDS ORDERED: ONDANSETRON 4MG 2ML VIAL As Ordered ONE (11:09)
[2022-11-29] MEDS ORDERED: ePHEDrine SULFATE 25 MG/5 ML(5MG/ML) SYRINGE As Ordered ONE (11:19)
[2022-11-29] MEDS ORDERED: ACETAMINOPHEN 1000MG 100ML IV BAG As Ordered ONE (11:26)
[2022-11-29] MEDS ORDERED: PHENYLephrine 500MCG 5ML (100MCG/ML) SYRINGE As Ordered ONE (11:26)
[2022-11-29] MEDS ORDERED: BACITRACIN OINTMENT 30GM TUBE As Ordered ONE (12:07)
[2022-11-29] MEDS ORDERED: fentaNYL 100 MCG/2 ML INJECTION IV PRN (12:10)
[2022-11-29] MEDS ORDERED: oxyCODONE 5MG TAB PO PRN (12:10)
[2022-11-29] MEDS ORDERED: ONDANSETRON 4MG 2ML VIAL IV PRN (12:10)
[2022-11-29] MEDS ORDERED: HYDROMORPHONE HCL 0.5 MG/ 0.5 ML SYRINGE IV PRN (12:10)
[2022-11-29] MEDS ORDERED: PERCOCET 5MG/325MG TAB PO PRN (12:40)
[2022-11-29] MEDS ORDERED: PERCOCET PO (12:58)
[2022-11-29 13:07] VITALS: BP 118/72
== END 2022-11-29 13:29 | disposition home or self-care (01) ==
LOC: M SDC 08:26
PROVIDERS: ATTEND Urology
DX: N47.1 Phimosis (principal); I10 Essential (primary) hypertension; E78.00 Pure hypercholesterolemia, unspecified; E10.9 Type 1 diabetes mellitus without complications; E16.4 Increased secretion of gastrin; C25.4 Malignant neoplasm of endocrine pancreas; C78.7 Secondary malignant neoplasm of liver and intrahepatic bile duct; K21.9 Gastro-esophageal reflux disease without esophagitis; J45.909 Unspecified asthma, uncomplicated; R35.0 Frequency of micturition; N40.0 Benign prostatic hyperplasia without lower urinary tract symptoms; Z92.21 Personal history of antineoplastic chemotherapy; Z79.899 Other long term (current) drug therapy; Z79.51 Long term (current) use of inhaled steroids; Z79.82 Long term (current) use of aspirin; Z79.4 Long term (current) use of insulin
CPT/HCPCS: 54161; 88304; J0131; J0690; J1100; J1815; J2250; J2370; J2405; J3010

== ENCOUNTER → 2023-06-02 | Outpatient (CLI) | payer MEDICARE, MEDICAID ==
[~2023-06-02] MED LIST changes: -LOSA100T45 PO; +LOSA100T46 PO; +PERCOCET PO
[2023-06-02 13:36] LABS: BASO % 0.5 % (0.0-1.0); EOS # 0.1 10^3/uL (0.0-0.5); EOS % 1.1 % (0.0-3.0); HEMATOCRIT 37.8 % (42.0-52.0); HEMOGLOBIN 11.8 g/dl (13.5-17.5); LYMPH # 3.2 10^3/uL (1.5-5.0); LYMPH % 41.9 % (24.0-44.0); MEAN CORPUSCULAR HEMOGLOBIN 25.7 pg (27.0-33.0); MEAN CORPUSCULAR HGB CONC 31.2 g/dl (32.0-36.5); MEAN CORPUSCULAR VOLUME 82.2 fl (80.0-96.0); MONO # 0.5 10^3/uL (0.0-0.8); MONO % 7.1 % (2.0-8.0); NEUTROPHILS # 3.7 10^3/uL (1.5-8.5); NEUTROPHILS % 49.1 % (36.0-66.0); PLATELET COUNT, AUTOMATED 311 10^3/uL (150-450); WHITE BLOOD COUNT 7.6 10^3/uL (4.0-10.0)
[2023-06-02 13:44] LABS: LDH LACTATE DEHYDROGENASE 253 U/L (120-246)
[2023-06-02 13:45] LABS: ALKALINE PHOSPHATASE 73 U/L (46-116); ALT/SGPT 18 U/L (7.0-40); AST/SGOT 28 U/L (<34); BILIRUBIN,TOTAL 0.2 MG/DL (0.3-1.2); BLOOD UREA NITROGEN 36 MG/DL (9-23); CALCIUM LEVEL 8.7 MG/DL (8.3-10.6); CARBON DIOXIDE LEVEL 29 MMOL/L (20-31); CHLORIDE LEVEL 105 MMOL/L (98-107); GLOMERULAR FILTRATION RATE > 60.0 (>42); GLUCOSE, FASTING 262 MG/DL (74-106); POTASSIUM SERUM 5.3 MMOL/L (3.5-5.1); SODIUM LEVEL 138 MMOL/L (136-145); TOTAL PROTEIN 7.7 G/DL (5.7-8.2)
== END ==
LOC: M LAB 12:27
PROVIDERS: ATTEND Internal Medicine Hematology & Oncology
DX: C7B.8 Other secondary neuroendocrine tumors (principal)

== ENCOUNTER → 2023-06-02 | Outpatient (CLI) | payer MEDICARE, MEDICAID ==
[~2023-06-02] MED LIST changes: +ISOVUE-370 76% 100ML VIAL As Ordered ONE
== END ==
LOC: M RAD 12:18
PROVIDERS: ATTEND Nurse Practitioner Family
DX: C7B.8 Other secondary neuroendocrine tumors (principal)
CPT/HCPCS: 71260; Q9967

== ENCOUNTER 2025-05-26 07:17 | Day surgery (SDC) | payer MEDICARE, MEDICAID ==
[~2025-05-26] VITALS: Ht 175.3 cm; Wt 71.9 kg
[~2025-05-26 07:17] MED LIST changes: -ADV250INH INH; +ADVA1AER9 INH; +ALFU10TA23 PO; -ALFU10TA3 PO; +AMLO-751 PO; -AMLO10TA PO; +BEVE1AER INH; -EQL50TAB2 PO; +FERR324T2 PO; -FLOM0.4C39 PO; +IBUP200C25 PO; +ICOS1CAP PO; -ISOVUE-370 76% 100ML VIAL As Ordered ONE; +LEVO25TA5 PO; +PHENYLEPHRINE 10% OPHTH SOL 5ML OS PRN; -ROSU10TA6 PO; +ROSU10TA61 PO; +TAMS-18 PO; +VITA1TAB82 PO
[2025-05-26] MEDS: PHENYLEPHRINE 2.5% OPHTH SOL 2ML OS SCH (08:19)
[2025-05-26] MEDS: CYCLOPENTOLATE 1% OPHTH SOLN 2 ML BTL OS SCH (08:19)
[2025-05-26] MEDS: TROPICAMIDE 1% OPHTH SOLN 15ML OS SCH (08:19)
[2025-05-26] MEDS: OFLOXACIN 0.3 % (OCUFLOX) OPTH SOL 5ML OS ONE (08:19)
[2025-05-26] MEDS: LIDOCAINE 3.5% 1 ML OPHTH TOPICAL GEL OU ONE (08:19)
[2025-05-26] MEDS ORDERED: GLUCOSE 4 GM CHEW PO PRN (08:20)
[2025-05-26] MEDS ORDERED: GLUCAGON INJ 1 MG VIAL SC PRN (08:20)
[2025-05-26] MEDS ORDERED: DEXTROSE 50% 50 ML SYRINGE IV PRN (08:20)
[2025-05-26 08:21] VITALS: BP 138/61; TEMP 97.5; O2SAT 96
[2025-05-26] MEDS: INSULIN LISPRO (NovoLOG) PER UNIT SC PRN (08:27)
[2025-05-26] MEDS: LIDOCAINE 1% SDV 5 ML VIAL As Ordered ONE (09:05)
[2025-05-26] MEDS: CEFUROXIME 1 MG/0.1 ML INTRACAMERAL INJ As Ordered ONE (09:06)
[2025-05-26] MEDS: BSS IRRIG/VANCO(10MG)/TOBRA(5MG)/EPINEPH(1:1000-0.5CC)500ML BAG-ORONLY As Ordered ONE (09:06)
== END 2025-05-26 09:51 | disposition home or self-care (01) ==
LOC: M SDC 07:17
PROVIDERS: ATTEND Ophthalmology
DX: H25.12 Age-related nuclear cataract, left eye (principal); E10.9 Type 1 diabetes mellitus without complications; Z79.899 Other long term (current) drug therapy
CPT/HCPCS: 66984; J0697; J1815; J3010; V2632

== ENCOUNTER 2025-06-23 08:01 | Day surgery (SDC) | payer MEDICARE, MEDICAID ==
[~2025-06-23] VITALS: Ht 175.3 cm; Wt 67.0 kg
[~2025-06-23 08:01] MED LIST changes: +MIDAZOLAM INJ 2 MG/2 ML VIAL As Ordered ONE; +PHENYLEPHRINE 10% OPHTH SOL 5ML OD PRN; -PHENYLEPHRINE 10% OPHTH SOL 5ML OS PRN; -ROSU10TA61 PO; +ROSU10TA90 PO; +TROPICAMIDE 1% OPHTH SOLN 15ML OD SCH
[2025-06-23] MEDS: PHENYLEPHRINE 2.5% OPHTH SOL 2ML OD SCH (09:13)
[2025-06-23] MEDS: OFLOXACIN 0.3 % (OCUFLOX) OPTH SOL 5ML OD ONE (09:13)
[2025-06-23] MEDS: LIDOCAINE 3.5% 1 ML OPHTH TOPICAL GEL OU ONE (09:13)
[2025-06-23] MEDS: CYCLOPENTOLATE 1% OPHTH SOLN 2 ML BTL OD SCH (09:13)
[2025-06-23] MEDS ORDERED: GLUCOSE 4 GM CHEW PO PRN (09:15)
[2025-06-23] MEDS ORDERED: DEXTROSE 50% 50 ML SYRINGE IV PRN (09:15)
[2025-06-23] MEDS ORDERED: GLUCAGON INJ 1 MG VIAL SC PRN (09:15)
[2025-06-23] MEDS: INSULIN LISPRO (NovoLOG) PER UNIT SC PRN (09:50)
[2025-06-23] MEDS: LIDOCAINE 1% SDV 5 ML VIAL As Ordered ONE (11:00)
[2025-06-23] MEDS: BSS IRRIG/VANCO(10MG)/TOBRA(5MG)/EPINEPH(1:1000-0.5CC)500ML BAG-ORONLY As Ordered ONE (11:00)
[2025-06-23] MEDS: CEFUROXIME 1 MG/0.1 ML INTRACAMERAL INJ As Ordered ONE (11:00)
[2025-06-23 12:10] VITALS: BP 114/83; TEMP 98.4; O2SAT 96
== END 2025-06-23 14:15 | disposition home or self-care (01) ==
LOC: M SDC 08:01
PROVIDERS: ATTEND Ophthalmology
DX: E10.36 Type 1 diabetes mellitus with diabetic cataract (principal); H25.11 Age-related nuclear cataract, right eye; I10 Essential (primary) hypertension; E10.40 Type 1 diabetes mellitus with diabetic neuropathy, unspecified; E03.9 Hypothyroidism, unspecified; J45.909 Unspecified asthma, uncomplicated; D64.9 Anemia, unspecified; E78.00 Pure hypercholesterolemia, unspecified; K21.9 Gastro-esophageal reflux disease without esophagitis; Z79.899 Other long term (current) drug therapy; N40.0 Benign prostatic hyperplasia without lower urinary tract symptoms; Z79.82 Long term (current) use of aspirin; Z79.4 Long term (current) use of insulin; Z79.890 Hormone replacement therapy; Z85.038 Personal history of other malignant neoplasm of large intestine; Z85.07 Personal history of malignant neoplasm of pancreas; Z90.49 Acquired absence of other specified parts of digestive tract
CPT/HCPCS: 66984; J0697; J1815; J2250; V2632